=== PATIENT | female | born 2000 ===

== ENCOUNTER 2022-02-07 08:22 | Inpatient (IN) | payer OTHER ==
[~2022-02-07] VITALS: Ht 160 cm; Wt 75.7 kg
== END 2022-02-09 13:02 | disposition home or self-care (01) | DRG 786 ==
LOC: LDR 08:22 → OB/GYN 16:29
PROVIDERS: ADMIT Obstetrics & Gynecology; ATTEND Obstetrics & Gynecology
PROC: 4A1HXCZ Monitoring of Products of Conception, Cardiac Rate, External Approach (ICD-10-PCS; 2022-02-07)
PROC: 10D00Z1 Extraction of Products of Conception, Low, Open Approach (ICD-10-PCS; principal; 2022-02-07 13:15)
DX: O42.013 Preterm premature rupture of membranes, onset of labor within 24 hours of rupture, third trimester (principal); O60.14X0 Preterm labor third trimester with preterm delivery third trimester, not applicable or unspecified; O99.820 Streptococcus B carrier state complicating pregnancy; Z3A.36 36 weeks gestation of pregnancy; Z37.0 Single live birth; Z20.822 Contact with and (suspected) exposure to COVID-19